=== PATIENT | female | born 1990 | race Caucasian/White ===

== ENCOUNTER 2018-07-01 09:45 | Emergency (ER) | payer OTHER ==
[2018-07-01 09:51] VITALS: RESP 18
--- NOTE | 2018-07-01 09:52 | ED ---
Allergic Reaction HPI - General Chief complaint: Allergic Reaction Stated complaint: Allergic reaction Time Seen by Provider: 07/01/18 09:48 Source: patient, RN notes reviewed, old records reviewed Mode of arrival: ambulatory Limitations: no limitations - History of Present Illness Initial Comments: This is a 27-year-old female the ER for evasive severe left-sided facial swelling. Patient With never having ALLERGIC reaction Left eye almost 1) very itching area itchy area. Patient denies any shortness of breath or feelings that her throat is closing. MD Complaint: allergic reaction, hives, facial swelling -: hour(s) (1) Exposure: other (cat fur) Symptoms: itching, facial swelling Severity: moderate Treatment Prior to Arrival: benadryl Previous Allergy History: none - Related Data Home Medications Medication Instructions Recorded Confirmed Norgestimate-Ethinyl Estradiol 1 tab PO DAILY 06/07/16 07/01/18 [Ortho Tri-Cyclen Lo Tablet] Loratadine [Claritin] 10 mg PO DAILY 07/01/18 07/01/18 Ondansetron Odt [Zofran Odt] 8 mg PO Q8HR PRN 07/01/18 07/01/18 Previous Rx's Medication Instructions Recorded Famotidine [Pepcid] 20 mg PO BID #28 tablet 07/01/18 hydrOXYzine HCL [Atarax] 25 mg PO TID PRN #15 tab 07/01/18 predniSONE 50 mg PO DAILY #5 tab 07/01/18 Allergies Allergy/AdvReac Type Severity Reaction Status Date / Time No Known Allergies Allergy Verified 07/01/18 10:19 Review of Systems ROS Statement: Those systems with pertinent positive or pertinent negative responses have been documented in the HPI. ROS Other: All systems not noted in ROS Statement are negative. Past Medical History Past Medical History: No Reported History History of Any Multi-Drug Resistant Organisms: None Reported Past Surgical History: Appendectomy, Tonsillectomy Past Psychological History: No Psychological Hx Reported Smoking Status: Never smoker Past Alcohol Use History: None Reported Past Drug Use History: None Reported General Exam Limitations: no limitations General appearance: alert, in no apparent distress Head exam: Present: atraumatic, normocephalic, normal inspection, other ( Significant facial swelling and eyelid edema) Eye exam: Present: normal appearance, PERRL, EOMI. Absent: scleral icterus, conjunctival injection, periorbital swelling ENT exam: Present: normal exam, mucous membranes moist Neck exam: Present: normal inspection. Absent: tenderness, meningismus, lymphadenopathy Respiratory exam: Present: normal lung sounds bilaterally. Absent: respiratory distress, wheezes, rales, rhonchi, stridor Cardiovascular Exam: Present: regular rate, normal rhythm, normal heart sounds. Absent: systolic murmur, diastolic murmur, rubs, gallop, clicks GI/Abdominal exam: Present: soft, normal bowel sounds. Absent: distended, tenderness, guarding, rebound, rigid Extremities exam: Present: normal inspection, full ROM, normal capillary refill. Absent: tenderness, pedal edema, joint swelling, calf tenderness Back exam: Present: normal inspection Neurological exam: Present: alert, oriented X3, CN II-XII intact Psychiatric exam: Present: normal affect, normal mood Skin exam: Present: warm, dry, intact, normal color. Absent: rash Course Vital Signs 07/01/18 07/01/18 09:48 11:29 Temperature 98.3 F 97.9 F Pulse Rate 85 82 Respiratory 18 18 Rate Blood Pressure 122/85 124/67 O2 Sat by Pulse 100 99 Oximetry - Reevaluation(s) Reevaluation #1: She is asymptomatic and feels much improved Medical Decision Making - Medical Decision Making 27 female the ER for evaluation presented ER for evaluation regarding ALLERGIC reaction and facial edema and swelling right eye swelling. Patient will be placed on prednisone and can be discharged home Disposition Clinical Impression: Allergic reaction, Urticaria Disposition: HOME SELF-CARE Condition: Good Instructions: General Allergic Reaction (ED) Prescriptions: Famotidine [Pepcid] 20 mg PO BID #28 tablet hydrOXYzine HCL [Atarax] 25 mg PO TID PRN #15 tab PRN Reason: Itching predniSONE 50 mg PO DAILY #5 tab Is patient prescribed a controlled substance at d/c from ED?: No Referrals: Yonis Gutierrez MD [Primary Care Provider] - 1-2 days
[2018-07-01] MEDS ORDERED: hydrOXYzine HCL 25 MG TAB PO STA (10:38)
[2018-07-01] MEDS ORDERED: DEXAMETHASONE 4 MG TAB PO STA (10:38)
[2018-07-01] MEDS ORDERED: FAMOTIDINE 20 MG TAB PO STA (10:38)
[2018-07-01] MEDS ORDERED: LORATADINE 10 MG TAB PO STA (10:38)
[2018-07-01 11:35] VITALS: BP 124/67; PULSE 82; TEMP 97.9
== END 2018-07-01 11:30 | disposition home or self-care (01) ==
LOC: EC 09:45
DX: L50.0 Allergic urticaria (principal); Z79.3 Long term (current) use of hormonal contraceptives; Z79.899 Other long term (current) drug therapy
CPT/HCPCS: 99283